=== PATIENT | female | born 1985 | race Caucasian/White ===

== ENCOUNTER 2018-06-17 06:01 | Inpatient (IN) | payer BC ==
[2018-06-17] MEDS ORDERED: OXYTOCIN 10 UNIT/ML 1 ML VIAL IM PRN (06:21)
[2018-06-17] MEDS ORDERED: METHYLERGONOVINE 0.2 MG/ML 1 ML AMP IM PRN (06:21)
[2018-06-17] MEDS ORDERED: CARBOPROST TROMETHAMINE 250 MCG/ML 1 ML AMP IM PRN (06:21)
[2018-06-17] MEDS ORDERED: LIDOCAINE 1% (PF) 10 MG/ML (30 ML SDV) SQ PRN (06:21)
[2018-06-17] MEDS ORDERED: TERBUTALINE 1 MG/ML VIAL SQ PRN (06:21)
[2018-06-17] MEDS ORDERED: OXYTOCIN 20 UNITS/1000 ML NS 1,000 ML IV SCH (06:30)
[2018-06-17 06:34] VITALS: BMI 32.8
[2018-06-17 06:46] LABS: Basophils % (A) 0 %; Eosinophils # (A) 0.1 k/uL (0-0.7); Eosinophils % (A) 1 %; HCT 34.9 % (34.0-46.0); HGB 11.5 gm/dL (11.4-16.0); Lymphocytes # (A) 1.5 k/uL (1.0-4.8); Lymphocytes % (A) 26 %; MCH 26.7 pg (25.0-35.0); MCHC 32.8 g/dL (31.0-37.0); MCV 81.4 fL (80.0-100.0); Mean Platelet Volume 7.2; Monocytes # (A) 0.4 k/uL (0-1.0); Monocytes % (A) 7 %; Neutrophils # (A) 3.7 k/uL (1.3-7.7); Neutrophils % (A) 64 %; Platelet Count 291 k/uL (150-450); RDW 14.7 % (11.5-15.5); WBC 5.8 k/uL (3.8-10.6)
[2018-06-17] MEDS: LACTATED RINGERS 1,000 ML IV SCH (06:51)
[2018-06-17 07:10] LABS: Glucose,Whole Blood 90 mg/dL (75-99)
--- NOTE | 2018-06-17 07:46 | P.HPOB ---
History of Present Illness H&P Date: 06/17/18 This is a 32-year-old white female 5 para 1031 EDC 06/24/2018 at 39 weeks gestation. Patient presents for induction with favorable. Fetus is been active throughout the . She is having mild contractions spontaneously. She denies fluid leakage or vaginal bleeding. Past medical history significant for gestational diabetes in 2012, diet controlled. Past surgical history D&E 2014, VT P 2004. Current medications vitamins daily. ALLERGIES none known. Family history significant for COPD, colon cancer, and therefore physical, hypertension, hypochondroplasia, hypothyroidism. Obstetric history significant for vaginal delivery 2013 liveborn female infant, medical interruption of 2014, miscarriage requiring no D&C and voluntary termination. Social history patient is , she has never been a smoker, she works for [employer]. She denies alcohol use. Obstetric history is significant for blood type A+, rubella status immune. VDRL testing, urine culture, hepatitis B surface antigen, HIV testing, gonorrhea and chlamydia cultures, group B strep cultures all negative. One- hour Glucola 222, 3 hour not performed as patient has been diagnosed with this number with gestational diabetes. On exam this is a pleasant white female, 5 foot 1 inch, 174 pounds, blood pressure 121/70, pulse 85. Fasting blood sugar is 90. The general physical exam is within normal limits. Cervix is 3 cm dilated, 70% effaced, vertex presentation. Artificial amniorrhexis reveals clear fluid. heart rate is consistent with reactive NST. Impression: 39 week intrauterine , here for elective induction of labor , all signs reassuring. Plan: Oxytocin per hospital protocol. Close maternal and surveillance. Analgesic options have been reviewed with the patient. Anticipate normal spontaneous vaginal delivery. Review of Systems Constitutional: Reports as per HPI Past Medical History Past Medical History: No Reported History Additional Past Medical History / Comment(s): gestational diabetes x2 History of Any Multi-Drug Resistant Organisms: None Reported Past Surgical History: No Surgical Hx Reported Additional Past Surgical History / Comment(s): D&C 2004 and D&E 2014. Past Anesthesia/Blood Transfusion Reactions: No Reported Reaction Past Psychological History: No Psychological Hx Reported Smoking Status: Never smoker Past Alcohol Use History: None Reported Past Drug Use History: None Reported - Past Family History Mother Family Medical History: Cancer, Hyperlipidemia, Hypertension Father Family Medical History: Congestive Heart Failure (CHF), Hypertension Medications and Allergies Home Medications Medication Instructions Recorded Confirmed Type Ulq-Hiys-Oilbv Acid 1 each PO DAILY 09/15/14 06/17/18 History [-U Capsule] Allergies Allergy/AdvReac Type Severity Reaction Status Date / Time No Known Allergies Allergy Verified 06/17/18 06:18 Exam Vital Signs Temp Pulse Resp BP Pulse Ox 06/17/18 06:17 96.9 F L 85 16 121/70 98 Intake and Output 06/16/18 06/17/18 06/17/18 22:59 06:59 14:59 Other: Weight 78.925 kg See dictation under HPI please Results Result Diagrams: 06/17/18 06:25 Assessment and Plan Assessment: 39 week intrauterine , favorable multiparous cervix, gestational diabetes with good sugar control. Plan: Oxytocin per hospital protocol. Close maternal and surveillance. May proceed with epidural when needed. Anticipate normal spontaneous vaginal delivery. Time with Patient: Less than 30
[2018-06-17] MEDS ORDERED: ROPIVACAINE 100 MG, fentaNYL (PF) 200 MCG in SODIUM CHLORIDE 0.9% 76 ML EPIDURAL ONE (09:07)
[2018-06-17] MEDS ORDERED: HYDROCORTISONE 2.5% RECTAL CREAM 30 GM TUBE RECTAL PRN (10:09)
[2018-06-17] MEDS ORDERED: HYDROcodone/APAP 5-325MG 1 EACH TAB PO PRN (10:09)
[2018-06-17] MEDS ORDERED: diphenhydrAMINE 50 MG/ML 1 ML VIAL IVP PRN ×2 (10:09)
[2018-06-17] MEDS ORDERED: ZOLPIDEM 5 MG TAB PO PRN (10:09)
[2018-06-17] MEDS ORDERED: diphenhydrAMINE 50 MG CAP PO PRN (10:09)
[2018-06-17] MEDS ORDERED: diphenhydrAMINE 25 MG CAP PO PRN (10:09)
[2018-06-17] MEDS ORDERED: BENZOCAINE/MENTHOL SPRAY 1 GM/SPRAY AEROSOL TOPICAL PRN (10:09)
[2018-06-17] MEDS ORDERED: WITCH HAZEL 1 EACH MED..PAD TOPICAL PRN (10:09)
[2018-06-17] MEDS ORDERED: diphenhydrAMINE ELIXIR 25 MG/10 ML CUP PO PRN (10:09)
[2018-06-17] MEDS ORDERED: LANOLIN CREAM 5 GM TUBE TOPICAL PRN (10:09)
[2018-06-17] MEDS ORDERED: SIMETHICONE 80 MG CHEWABLE PO PRN (10:09)
--- NOTE | 2018-06-17 10:09 | P.PROBDLV ---
Vaginal Delivery Note - . Vaginal Delivery Note: This is a 32-year-old white female 5 para 1031 EDC 06/24/2018 at 39 weeks gestation. Patient presented for induction with favorable multiparous cervix. She was noted to be having uterine contractions upon admission. [place] strep cultures were negative. Rubella status immune. Blood type A positive. Please see my dictated history and physical for details. Blood sugar on admission 90. Artificial amniorrhexis revealed clear fluid. Oxytocin was started and titrated per hospital protocol. Patient progressed well through the first stage of labor was judged to be completely dilated at 0950 hours. Perineal body was prepped and draped in usual sterile fashion. Please note that heart tones were reactive throughout the first and second stages of labor. With excellent maternal expulsive efforts the head delivered occiput anterior, he restituted accordingly. There was a nuchal cord 1 that was reduced on the perineal body. The left or anterior shoulder was gently and easily delivered from underneath the pubic symphysis at which time the oropharynx, nasopharynx, and external nares were bulb suctioned. Patient was officially delivered of a liveborn male infant at 0956 hours. Umbilical cord was doubly clamped and ligated, he was handed to waiting nurses for evaluation where scores of 9 and 9 at one and 5 minutes respectively were given. The placenta was delivered spontaneously, it was inspected and noted to be intact with trivascular cord at 0958 hours. Uterus is then massaged. Inspection of the cervix, vagina, perineum, periurethral, and perirectal areas revealed no lacerations and no defects. Fundus is firm and in the midline, symmetric and 18 week size upon completion of delivery. Total estimated blood loss 300 mL's. Infant's weight is 8 lbs. 6 oz. or 3785 g. Patient and her are requesting circumcision further son.
[2018-06-17] MEDS: IBUPROFEN 600 MG TAB PO PRN (19:03)
[2018-06-17 20:23] LABS: Hemoglobin A1C 5.6 % (4.0-6.0)
[2018-06-17] MEDS: ACETAMINOPHEN TAB 325 MG TAB PO PRN (21:19)
[2018-06-17] MEDS: SENNOSIDES-DOCUSATE SODIUM 1 EACH TAB PO SCH (23:56)
[2018-06-18] MEDS: IBUPROFEN 600 MG TAB PO PRN (03:30)
[2018-06-18] MEDS: LACTATED RINGERS 1,000 ML IV SCH (04:26)
[2018-06-18] MEDS: ACETAMINOPHEN TAB 325 MG TAB PO PRN (08:00)
[2018-06-18] MEDS: SENNOSIDES-DOCUSATE SODIUM 1 EACH TAB PO SCH (08:00)
[2018-06-18 08:11] VITALS: BP 115/69; PULSE 71; RESP 18; TEMP 98.3
--- NOTE | 2018-06-18 08:59 | P.DS ---
Providers Date of admission: 06/17/18 06:01 Expected date of discharge: 06/18/18 Attending physician: Kim Peña Primary care physician: Brian Dempsey [facility] Course: This is a 32-year-old white female 5 para 1031 EDC 06/24/2018 at 39 weeks gestation. Patient presented for induction with favorable multiparous cervix. remarkable for gestational diabetes, blood sugar on admission 90. Group B strep cultures negative, blood type A+, rubella status immune. Please see dictated history and physical for details. Patient was admitted, artificial amniorrhexis revealed clear fluid. Oxytocin was started and titrated per hospital protocol. Epidural was placed per her request. Patient went on to deliver a liveborn male infant with scores of 9 and 9 at one and 5 minutes respectively. He weighed 3785 g, or 8 lbs. 6 oz. Estimated blood loss 300 mL's. No perineal lacerations sustained. Please see dictated delivery note for details. This morning the patient is doing well. She is voiding, ambulating and passing flatus without difficulty. Vital signs are stable and she is afebrile. Breast- feeding is going well. There is minimal to moderate lochia rubra, no large blood clots. Circumcision has been performed on the . Patient is judged to be in very good condition for discharge home. She will follow-up with me in the office in 6 weeks. I have reminded her no intercourse tampons or douching. She will use [id number] Advil, Aleve or Motrin products as needed for pain. She will continue taking her vitamin daily. She will call me with any fevers shakes or chills, foul smelling or copious lochia, with the passage of large blood clots, with any pain not alleviated by [id number] products, or indeed with any concerns. We have briefly reviewed her options for contraception and we will discuss this further in the office. Patient Condition at Discharge: Good Plan - Discharge Summary New Discharge Prescriptions: No Action Vtq-Xhmf-Poysz Acid [-U Capsule] 1 each PO DAILY Discharge Medication List Ipl-Xaqz-Tcsar Acid [-U Capsule] 1 each PO DAILY 09/15/14 [ History] Follow up Appointment(s)/Referral(s): Kim Peña MD [STAFF PHYSICIAN] - 6 Weeks Discharge Disposition: HOME SELF-CARE
== END 2018-06-18 12:29 | disposition home or self-care (01) | DRG 775 ==
LOC: 4FBP 06:01
PROVIDERS: ADMIT Obstetrics & Gynecology; ATTEND Obstetrics & Gynecology
PROC: 10907ZC Drainage of Amniotic Fluid, Therapeutic from Products of Conception, Via Natural or Artificial Opening (ICD-10-PCS; principal; 2018-06-17)
PROC: 3E0R3NZ Introduction of Analgesics, Hypnotics, Sedatives into Spinal Canal, Percutaneous Approach (ICD-10-PCS; principal; 2018-06-17)
PROC: 10E0XZZ Delivery of Products of Conception, External Approach (ICD-10-PCS; principal; 2018-06-17)
PROC: 3E033VJ Introduction of Other Hormone into Peripheral Vein, Percutaneous Approach (ICD-10-PCS; principal; 2018-06-17)
PROC: 00HU33Z Insertion of Infusion Device into Spinal Canal, Percutaneous Approach (ICD-10-PCS; principal; 2018-06-17)
DX: O24.429 Gestational diabetes mellitus in childbirth, unspecified control (principal); Z37.0 Single live birth; O69.81X0 Labor and delivery complicated by cord around neck, without compression, not applicable or unspecified; Z3A.39 39 weeks gestation of pregnancy; Z80.0 Family history of malignant neoplasm of digestive organs; Z82.49 Family history of ischemic heart disease and other diseases of the circulatory system; Z82.5 Family history of asthma and other chronic lower respiratory diseases
CPT/HCPCS: 83036; 85025